=== PATIENT | female | born 1945 | race Caucasian/White ===

== ENCOUNTER 2016-04-17 09:13 | Day surgery (SDC) | payer MEDICARE, BC ==
[~2016-04-17] VITALS: Ht 165.1 cm; Wt 81.6 kg
[~2016-04-17 09:13] MED LIST: ALOE VERA25 MG PO; CARDIZEM SR120 MG PO; COZAAR100 MG PO; CYMBALTA60 MG PO; HYDROCHLOROTHIA25 MG PO; NASACORT16.9 ML NASBOTH; NEURONTIN600 MG PO; PREVALITE PACKET4 GM PO; TRAZODONE HCL100 MG PO; TUMS500 MG PO; ULTRAM50 MG PO; VITAMIN D3 PO
== END 2016-04-17 11:39 | disposition short-term general hospital (02) ==
LOC: SURGOP 09:13
PROC: 0DJD8ZZ Inspection of Lower Intestinal Tract, Via Natural or Artificial Opening Endoscopic (ICD-10-PCS; principal; 2016-04-17)
DX: Z12.11 Encounter for screening for malignant neoplasm of colon (principal); K59.09 Other constipation; F32.9 Major depressive disorder, single episode, unspecified; R74.0 Nonspecific elevation of levels of transaminase and lactic acid dehydrogenase [LDH]; N30.10 Interstitial cystitis (chronic) without hematuria; M79.7 Fibromyalgia; E78.5 Hyperlipidemia, unspecified; I10 Essential (primary) hypertension; E87.6 Hypokalemia; K90.9 Intestinal malabsorption, unspecified; E66.01 Morbid (severe) obesity due to excess calories; M17.9 Osteoarthritis of knee, unspecified; H16.009 Unspecified corneal ulcer, unspecified eye; H01.009 Unspecified blepharitis unspecified eye, unspecified eyelid; H60.90 Unspecified otitis externa, unspecified ear; Z98.84 Bariatric surgery status; Z88.8 Allergy status to other drugs, medicaments and biological substances; Z79.52 Long term (current) use of systemic steroids; Z79.899 Other long term (current) drug therapy; Z90.49 Acquired absence of other specified parts of digestive tract; Z98.890 Other specified postprocedural states; Z98.1 Arthrodesis status; Z90.89 Acquired absence of other organs; Z82.49 Family history of ischemic heart disease and other diseases of the circulatory system; Z83.3 Family history of diabetes mellitus; Z83.49 Family history of other endocrine, nutritional and metabolic diseases; Z82.3 Family history of stroke; Z80.52 Family history of malignant neoplasm of bladder
CPT/HCPCS: 00810; G0121

== ENCOUNTER → 2016-06-09 | Outpatient (CLI) | payer MEDICARE, BC | END | disposition short-term general hospital (02) | LOC: CLNEUR 11:10 | DX: M54.5 Low back pain (principal); M47.896 Other spondylosis, lumbar region; M41.9 Scoliosis, unspecified; M48.06 Spinal stenosis, lumbar region; Z98.1 Arthrodesis status; Z98.890 Other specified postprocedural states; M53.3 Sacrococcygeal disorders, not elsewhere classified ==